=== PATIENT | male | born 1980 | race Caucasian/White ===

== ENCOUNTER 2018-06-18 22:58 | Emergency (ER) | payer OTHER ==
[~2018-06-18] VITALS: Ht 177.8 cm; Wt 83.9 kg
--- NOTE | ~2018-06-18 | EKG ---
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
[2018-06-18 23:51] LABS: ABSOLUTE NEUTROPHILS 7.7 thou/uL (1.4-8.2); BASOPHILS 0.7 % (0.0-2.0); EOSINOPHILS 0.7 % (0.0-3.0); HEMATOCRIT 43.2 % (42.0-52.0); HEMOGLOBIN 15.3 gm/dL (14.0-18.0); LYMPHOCYTES 12.1 % (24.0-44.0); MCH 31.1 pg (26.0-34.0); MCHC 35.4 g/dL (28.0-37.0); MCV 87.7 fL (80.0-100.0); MONOCYTES 10.7 % (1.0-8.0); PLATELET COUNT 210 thou/uL (150-400); POLYS 75.8 % (36.0-66.0); RBC 4.92 mil/uL (4.50-6.00); RDW 12.3 % (10.5-14.5); WBC 10.1 thou/uL (4.0-11.0)
[2018-06-18 23:55] LABS: ANION GAP 7 mmol/L (7-16); BUN 21 mg/dL (7-18); CALCIUM 9.4 mg/dL (8.5-10.1); CHLORIDE 104 mmol/L (98-107); CO2 31 mmol/L (21-32); CREATININE 1.2 mg/dL (0.7-1.3); GLUCOSE 113 mg/dL (74-106); SODIUM 142 mmol/L (136-145)
[2018-06-19 00:04] LABS: TROPONIN-I <0.06 ng/mL (<0.06)
[2018-06-19] MEDS ORDERED: MOBIC15 MG PO (02:48)
[2018-06-19] MEDS ORDERED: TORADOL 10 MG T10 MG PO (04:07)
[2018-06-19] MEDS ORDERED: NORCO 5-325 TA1 EACH PO (04:07)
[2018-06-19 04:16] VITALS: BP 121/77
== END 2018-06-19 04:18 | disposition home or self-care (01) ==
LOC: ER 22:58
PROVIDERS: Emergency Medicine
DX: I31.9 Disease of pericardium, unspecified (principal); R07.89 Other chest pain